=== PATIENT | female | born 1990 | race Two or more races ===

== ENCOUNTER 2017-04-03 04:01 | Emergency (ER) | payer BC, OTHER ==
[~2017-04-03] VITALS: Ht 154.9 cm; Wt 99.8 kg
[2017-04-03] MEDS ORDERED: NAPR-683 PO (04:44)
[2017-04-03] MEDS ORDERED: DIAZ5TAB PO (04:44)
[2017-04-03] MEDS ORDERED: ACET325T9 PO (04:44)
--- NOTE | 2017-04-03 04:44 | PHYS DOC ---
Past History Past Medical History: No Pertinent History, Other Past Surgical History: No Surgical History, Tonsillectomy Smoking: Non-smoker Alcohol Use: None Drug Use: None Adult General Chief Complaint Chief Complaint: BACK PAIN - NO INJURY [facility] HPI Patient is a pleasant otherwise healthy 27-year-old female who presents with back pain that began a week ago while at work. 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 She's had back pain like this in the past seen by her chiropractor which has not helped her symptoms. She's been attempting to use icy hot, Epson salt baths, Excedrin which has not really improved her symptoms. She denies any night sweats, denies any trauma to her back, denies any numbness and tingling to her legs, bowel or bladder incontinence, UTI symptoms, or the possibly that she is . She's never had a history of cancer or any other prior injury to her back. Patient denies any weakness in her legs for problems walking other than the fact that exacerbates her pain. Differential diagnosis of concern CRAFTI Cauda Equina Renal Stone AAA ruptured Fracture Tumor (TB, metastatic disease) Infection UTI, pyelonephritis, epidural abscess. Review of Systems Review of Systems Constitutional: Denies fever or chills [] Eyes: Denies change in visual acuity, redness, or eye pain [] HENT: Denies nasal congestion or sore throat [] Respiratory: Denies cough or shortness of breath [] Cardiovascular: No additional information not addressed in HPI [] GI: Denies abdominal pain, nausea, vomiting, bloody stools or diarrhea [] : Denies dysuria or hematuria [] Musculoskeletal: Positive for low back pain no joint pain no extremity pain no weakness Integument: Denies rash or skin lesions [] Neurologic: Denies headache, focal weakness or sensory changes [] Endocrine: Denies polyuria or polydipsia [] All other systems were reviewed and found to be within normal limits, except as documented in this note. Allergies Allergies Allergies Coded Allergies Type Severity Reaction Last Updated Verified No Known Drug Allergies 05/13/14 No Physical Exam Physical Exam Other vital signs that were taken and placed on the chart within normal limits Constitutional: Well developed, well nourished, in acute distress, non-toxic appearance. [] Cardiovascular:Heart rate regular rhythm, no murmur [] Lungs & Thorax: Bilateral breath sounds clear to auscultation [] Skin: Warm, dry, no erythema, no rash. [] Back: Patient with tenderness to palpation of the erector spinae muscles. The right and left of the lumbar spine. Patient has tenderness that's reproducible on exam with localized muscle spasm over L3 L4 L5 laterally. There is no skin changes, she also has tenderness over the gluteus garett bilaterally there is no proptosis skin no soft tissue swelling. Extremities: No tenderness, no cyanosis, no clubbing, ROM intact, no edema. [] Neurologic: Alert and oriented X 3, normal motor function, normal sensory function, no focal deficits noted. Patient's gait is mildly antalgic secondary to pain patient has +2 DTRs lower extremities great strength and intrinsic muscles of the feet and ankles and extension and flexion at the knee. She has normal flexion at the hip as well.[] Psychologic: Affect normal, judgement normal, mood normal. [] EKG EKG [] Radiology/Procedures Radiology/Procedures [] Course & Med Decision Making Course & Med Decision Making Pertinent Labs and Imaging studies reviewed. (See chart for details) []Patient since with lower back pain after lifting heavy object at work. I believe this is musculoskeletal in nature as I can reproduce it on exam patient has a normal neuro exam and no history of IV drug use, no history of night sweats, weight loss, UTI symptoms, bowel or bladder incontinence, history of cancer, or other neurologic deficits. CRAFTI Cauda Equina Renal Stone AAA ruptured Fracture Tumor (TB, metastatic disease) Infection UTI, pyelonephritis, epidural abscess. Patient's spine symptoms have stabilized while they have been evaluated in the department and are appropriate for outpatient work up. No evidence of cauda equina, cord compression, infiltrative, or infectious etiology. discharge: I've spoken with the patient and/or caregivers. I've explained the patient's condition, diagnosis and treatment plan based on information available to me at this time. I've answered the patient's and/or caregivers questions and addressed any concerns. The patient and/or caregivers have a good understanding the patient's diagnosis, condition and treatment plan as can be expected at this point. Vital signs have been stabilized. The patient's condition is stable for discharge from the emergency department. The patient will pursue further outpatient evaluation with her primary care provider or other designated consulting physician as outlined in the discharge instructions. Patient and/or caregivers are agreeable to this plan of care and follow-up instructions have been explained in detail. The patient and/or caregivers have received these instructions in written format and expressed understanding of these discharge instructions. The patient and her caregivers are aware that if any significant change in condition or worsening of symptoms should prompt him to immediately return to this of the closest emergency department. If an emergent department is not readily available I would encourage him to call 911. Dragon Disclaimer Dragon Disclaimer This electronic medical record was generated, in whole or in part, using a voice recognition dictation system. Departure Departure: Impression: Primary Impression: Back pain Additional Impression: Antalgic gait Disposition: HOME, SELF-CARE Condition: STABLE Referrals: ASHISH PAL MD (PCP) Patient Instructions: Back Exercises, Back Injury Prevention, Back Pain, Adult Additional Instructions: discharge: I've spoken with the patient and/or caregivers. I've explained the patient's condition, diagnosis and treatment plan based on information available to me at this time. I've answered the patient's and/or caregivers questions and addressed any concerns. The patient and/or caregivers have a good understanding the patient's diagnosis, condition and treatment plan as can be expected at this point. Vital signs have been stabilized. The patient's condition is stable for discharge from the emergency department. The patient will pursue further outpatient evaluation with her primary care provider or other designated consulting physician as outlined in the discharge instructions. Patient and/or caregivers are agreeable to this plan of care and follow-up instructions have been explained in detail. The patient and/or caregivers have received these instructions in written format and expressed understanding of these discharge instructions. The patient and her caregivers are aware that if any significant change in condition or worsening of symptoms should prompt him to immediately return to this of the closest emergency department. If an emergent department is not readily available I would encourage him to call 911. Scripts Naproxen (NAPROSYN) 500 Mg Tablet 1 TAB PO BID, #20 TAB 1 Refill Prov: MELY OLSEN MD 04/03/17 Acetaminophen (TYLENOL) 325 Mg Tablet 1-2 TAB PO QID, #30 TAB 2 Refills Prov: MELY OLSEN MD 04/03/17 Diazepam (VALIUM) 5 Mg Tablet 5 MG PO TID for 5 Days, #15 TAB Please use one tablet every 8 hours as needed for muscle spasms. Do not drink alcohol or use other narcotics with this medication. Prov: MELY OLSEN MD 04/03/17 Problem Qualifiers MELY OLSEN MD Apr 03, 2017 04:44
[2017-04-03] MEDS ORDERED: KETOROLAC 60 MG/2 ML VIAL. IM ONE (05:00)
[2017-04-03] MEDS ORDERED: diazePAM 5 MG TABLET PO ONE (05:00)
[2017-04-03] MEDS ORDERED: HYDROmorphone PF 1 MG/ML DISP.SYRIN IM ONE (05:00)
[2017-04-03 05:45] VITALS: BP 114/75
== END 2017-04-03 05:45 | disposition home or self-care (01) ==
LOC: ER 04:01
DX: M54.5 Low back pain (principal); R26.89 Other abnormalities of gait and mobility
CPT/HCPCS: 96372; 99284; J1170; J1885

== ENCOUNTER 2018-08-21 22:40 | Emergency (ER) | payer BC, OTHER ==
[~2018-08-21] VITALS: Ht 154.9 cm; Wt 99.8 kg
[2018-08-21 22:40] VITALS: BP 117/72
[~2018-08-21 22:40] MED LIST: ACET325T9 PO; DIAZ5TAB PO; NAPR-683 PO
[2018-08-21] MEDS ORDERED: ORPH-16 PO (23:04)
[2018-08-21] MEDS ORDERED: NAPR375T5 PO (23:04)
--- NOTE | 2018-08-21 23:04 | PHYS DOC ---
Past History Past Medical History: Other Additional Past Medical Histor: Chronic back pain Past Surgical History: No Surgical History, Tonsillectomy Smoking: Non-smoker Alcohol Use: None Drug Use: None Adult General Chief Complaint Chief Complaint: BACK PAIN OR INJURY HPI HPI 28-year-old female presents with report of left low back pain radiating down her leg which is been ongoing for the past week. Patient reports history of similar symptoms intermittently over the last 3 years. 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 Patient reports she had previously taken naproxen for it with some improvement. Patient reports she is currently out of her medications. Patient reports she was also instructed to use a TENS unit. Patient reports that TENS unit has not currently helped. Denies loss of bowel or bladder. Denies fever or chills. Denies recent trauma. Denies . Review of Systems Review of Systems Constitutional: Denies fever or chills Eyes: Denies redness or eye pain HENT: Denies nasal congestion or sore throat Respiratory: Denies cough or shortness of breath Cardiovascular: Denies chest pain or palpitations GI: Denies abdominal pain, nausea, or vomiting : Denies dysuria or hematuria or Musculoskeletal: Reports low back pain with radiation down left leg Integument: Denies rash or skin lesions Neurologic: Denies headache, focal weakness or sensory changes Complete systems were reviewed and found to be within normal limits, except as documented in this note. Allergies Allergies Allergies Coded Allergies Type Severity Reaction Last Updated Verified No Known Drug Allergies 05/13/14 No Physical Exam Physical Exam Constitutional: Well developed, well nourished, no acute distress, non-toxic appearance HENT: Normocephalic, atraumatic, oropharynx moist Eyes: Conjunctiva normal, no discharge Neck: Normal range of motion, no tenderness, supple Cardiovascular: Heart rate normal, regular rhythm Lungs & Thorax: Bilateral breath sounds clear to auscultation, no wheezing Abdomen: Soft, no tenderness Skin: Warm, dry, no erythema, no rash Back: No midline tenderness, no CVA tenderness, left low paraspinal tenderness Extremities: No tenderness, ROM intact, no edema Neurologic: Alert and oriented X 3, normal motor function, normal sensory function, no focal deficits noted Psychologic: Affect normal, judgement normal EKG EKG [] Radiology/Procedures Radiology/Procedures [] Course & Med Decision Making Course & Med Decision Making Patient presents with history of present illness and physical exam consistent for acute on chronic low back pain. No midline bony tenderness noted. No history of recent trauma. Denies . Symptomatic treatment provided with ice pack, IM ketorolac, and IM Norflex. Patient stable for discharge with outpatient follow-up with PCP/pain management. Pain management referral provided to Dr. Gillespie. Discussed findings and plan with patient and family, who acknowledge understanding and agreement. Dragon Disclaimer Dragon Disclaimer This electronic medical record was generated, in whole or in part, using a voice recognition dictation system. Departure Departure: Impression: Primary Impression: Acute exacerbation of chronic low back pain Disposition: HOME, SELF-CARE Condition: STABLE Referrals: JOSE ACEVEDO (PCP) Patient Instructions: Chronic Back Pain Additional Instructions: Please call Dr. Doug Gillespie (Pain management) at Scripts Naproxen (NAPROXEN) 375 Mg Tablet. 375 MG PO TID PRN PRN for PAIN, #30 TAB Prov: SHELLEY ARNETT DO 08/21/18 Orphenadrine Citrate (ORPHENADRINE CITRATE) 100 Mg Tablet.er 1 TAB PO BID PRN for MUSCLE PAIN, #14 TAB 0 Refills Prov: SHELLEY ARNETT DO 08/21/18 SHELLEY ARNETT DO Aug 21, 2018 23:04
[2018-08-21] MEDS ORDERED: ORPHENADRINE CITRATE 60 MG/2 ML VIAL. IM ONE (23:30)
[2018-08-21] MEDS ORDERED: KETOROLAC 30 MG/ML VIAL. IM ONE (23:30)
== END 2018-08-21 23:20 | disposition home or self-care (01) ==
LOC: ER 22:40
DX: G89.29 Other chronic pain (principal); M54.5 Low back pain
CPT/HCPCS: 96372; 99284; J1885; J2360